=== PATIENT | male | born 1975 | race African-American/Black ===

== ENCOUNTER 2017-10-22 18:25 | Emergency (ER) | payer MEDICAID ==
[~2017-10-22] VITALS: Ht 190.5 cm; Wt 122.7 kg
[2017-10-22] MEDS ORDERED: DiphenhydrAMINE HCL 25 MG CAPSULE PO ONE (21:30)
[2017-10-22] MEDS ORDERED: PredniSONE 20 MG TABLET PO ONE (21:30)
[2017-10-22 22:20] VITALS: BP 130/78
== END 2017-10-22 22:26 | disposition home or self-care (01) ==
LOC: EMS 18:26
DX: L50.9 Urticaria, unspecified (principal); Z88.0 Allergy status to penicillin
CPT/HCPCS: 99283; J7512